=== PATIENT | female | born 1995 | race Caucasian/White ===

== ENCOUNTER 2016-12-11 01:43 | Emergency (ER) | payer SELFPAY ==
[~2016-12-11] VITALS: Ht 172.7 cm; Wt 57.6 kg
[~2016-12-11 01:43] MED LIST: BUPR100CR PO; GABA600T PO; LAMO100 PO; PRAZ1CAP PO; SERO300T PO
[2016-12-11 01:45] VITALS: BP 126/78; PULSE 54; RESP 16; TEMP 98.1; O2SAT 100
[2016-12-11] MEDS ORDERED: CEPHALEXIN MONOHYDRATE 500 MG CAP PO ONE (02:00)
[2016-12-11] MEDS ORDERED: CEPH500C PO (02:00)
[2016-12-11] MEDS ORDERED: PRED-503 PO (02:00)
--- NOTE | 2016-12-11 02:05 | PD ---
HPI Chief Complaint: Cold / Flu Symptoms Time Seen by Provider: 02:01 Travel History International Travel<30 days: No Contact w/Intl Traveler<30days: No Traveled to known affect area: No History of Present Illness HPI 21-year-old white female presents to emergency department with a 4-to five-day history of subjective fever and chills, earache, sore throat, congestion, cough and general malaise. She denies any nausea vomiting. No melena or diarrhea. No dysuria or frequency. No rashes or lesions. Tonsils are moderate. Worse with swallowing. PFSH Past Medical History Narrative Medical Kidney stones, Anxiety Anxiety: Yes Diabetes: No Diminished Hearing: No Kidney Stones: Yes (Hx per pt.) Respiratory: Yes (Hx bronchitis per pt.) Seizures: No (PT DENIES) Tetanus Vaccination: Unknown Influenza Vaccination: No ?: LMP: 11/18/16 : 1 Para: 0 Miscarriage: 1 : 0 Past Surgical History Surgical History: No Previous Surgery Social History Alcohol Use: Yes (very seldom) Tobacco Use: Yes (1/2 ppd) Substance Use: No (PT DENIES) Allergies-Medications (Allergen,Severity, Reaction): Coded Allergies: Clindamycin (Verified Allergy, Severe, Hives, 12/11/16) Per pt. Tramadol (Verified Allergy, Severe, Hives, 12/11/16) Per pt. Amoxicillin (Verified Allergy, Unknown, 12/11/16) Lactose (Verified Allergy, Unknown, 12/11/16) Penicillin (Verified Allergy, Unknown, 12/11/16) Reported Meds & Prescriptions Reported Meds & Active Scripts Active No Active Prescriptions or Reported Medications Review of Systems Except as stated in HPI: all other systems reviewed are Neg Physical Exam Narrative GENERAL: Well-developed, well-nourished in no acute distress. Nontoxic appearing. Positive laryngitis HEAD: Normocephalic, atraumatic. EYES: Pupils equal round and reactive. Extraocular motions intact. No scleral icterus. No injection or drainage. ENT: TMs clear without erythema. The external auditory canals clear. Nose: clear . Posterior pharynx is mildly erythematous and moist. No tonsillar edema or exudate. Uvula midline. Airway patent. NECK: Trachea midline.Supple, nontender, moves head freely. No central bony tenderness or spasm. CARDIOVASCULAR: Regular rate and rhythm without murmurs, gallops, or rubs. RESPIRATORY: Clear to auscultation. Breath sounds equal bilaterally. No wheezes , rales, or rhonchi. GASTROINTESTINAL: Abdomen soft, non-tender, nondistended. No hepato-splenomegaly , or palpable masses. No guarding. EXTREMITIES: No clubbing, cyanosis, or edema. No joint tenderness, effusion, or edema noted. BACK: Nontender without deformity or crepitance. No flank tenderness. Data Data Last Documented VS Vital Signs Date Time Temp Pulse Resp B/P Pulse Ox O2 Delivery O2 Flow Rate FiO2 12/11/16 01:45 98.1 54 16 126/78 100 Orders Cephalexin (Keflex) (12/11/16 02:00) [facility] Medical Decision Making Medical Screen Exam Complete: Yes Emergency Medical Condition: Yes Medical Record Reviewed: Yes Differential Diagnosis MDM: High Differential diagnoses: Strep throat, viral pharyngitis, mono, laryngitis Narrative Course Patient given Keflex 500 mg by mouth. This is acute laryngitis Diagnosis Primary Impression: Acute laryngitis Patient Instructions: General Instructions Additional Instructions: Rest. Force fluids. Saltwater gargles. Tylenol and Advil. Chloraseptic [place] Cepastat lozenge. Keflex and prednisone.. Follow-up with a primary care doctor in one week. Return to the ER if any problems. Med/Other Pt SpecificInfo: Prescription(s) given Scripts Prednisone (Deltasone)20 Mg Tab20 Mg PO BID #10 TAB Prov:Jessi Lim DO 12/11/16 Cephalexin 500 Mg Qgc016 Mg PO Q6H #28 CAP Prov:Jessi Lim DO 12/11/16 Disposition: 01 DISCHARGE HOME Condition: Stable Mak Tripathi Dec 11, 2016 02:05
== END 2016-12-11 02:43 | disposition home or self-care (01) ==
LOC: NEPD 01:43
DX: J04.0 Acute laryngitis (principal); F17.210 Nicotine dependence, cigarettes, uncomplicated
CPT/HCPCS: 99284

== ENCOUNTER 2017-04-12 16:33 | Emergency (ER) | payer SELFPAY ==
[~2017-04-12] VITALS: Ht 172.7 cm; Wt 50.0 kg
[~2017-04-12 16:33] MED LIST changes: -BUPR100CR PO; +CEPH500C PO; -GABA600T PO; -LAMO100 PO; -PRAZ1CAP PO; +PRED-503 PO; -SERO300T PO
[2017-04-12 16:36] VITALS: BP 124/75; PULSE 115; RESP 13; TEMP 98.1; O2SAT 97
--- NOTE | 2017-04-12 17:47 | PD ---
HPI Chief Complaint: Skin Problem Time Seen by Provider: 17:28 Travel History International Travel<30 days: No Contact w/Intl Traveler<30days: No Traveled to known affect area: No History of Present Illness HPI 21-year-old female presents to emergency department for evaluation of urticarial -like rash. Patient was seen and evaluated yesterday at [facility] with few lesions on her posterior trunk. She was given Benadryl and a steroid shot. This resolved her rash completely within one hour and she was discharged. Patient states by 9:00 last night the hives began to return and now she feels as though her entire body is covered with them. She states that the itch. She is concerned that she was allergic to one of the medications they gave her. Denies any chest pain or tightness. No difficulty breathing. No sensation oral swelling or difficulty swallowing. No other symptoms to report. PFSH Past Medical History Anxiety: Yes Diabetes: No Diminished Hearing: No Kidney Stones: Yes (Hx per pt.) Respiratory: Yes (Hx bronchitis per pt.) Seizures: No (PT DENIES) ?: Unknown LMP: 03/15/17 : 1 Para: 0 Miscarriage: 1 : 0 Social History Alcohol Use: Yes (very seldom) Tobacco Use: Yes (1/2 ppd) Substance Use: No (PT DENIES) Allergies-Medications (Allergen,Severity, Reaction): Coded Allergies: clindamycin (Unverified Allergy, Severe, Hives, 02/18/17) Per pt. tramadol (Unverified Allergy, Severe, Hives, 02/18/17) Per pt. amoxicillin (Unverified Allergy, Unknown, 02/18/17) lactose (Unverified Allergy, Unknown, 02/18/17) penicillin G (Unverified Allergy, Unknown, 02/18/17) Reported Meds & Prescriptions Reported Meds & Active Scripts Active Zantac (Ranitidine HCl) 150 Mg Tab 150 Mg PO BID 5 Days Deltasone (Prednisone) 20 Mg Tab 20 Mg PO BID 5 Days Deltasone (Prednisone) 20 Mg Tab 20 Mg PO BID Cephalexin 500 Mg Cap 500 Mg PO Q6H Review of Systems Except as stated in HPI: all other systems reviewed are Neg Physical Exam Narrative GENERAL: Well-nourished, well-developed female patient in no acute distress SKIN: Focused skin assessment warm/dry. General eyes: Confluent urticarial- like rash on the extremities. Patient does have mild excoriation on the left medial upper extremity from scratching. No pustular or vesicular formation. HEAD: Normocephalic. EYES: No scleral icterus. No injection or drainage. ENT: The lower lip does appear mildly edematous. Mucosa pink and moist. No erythema or exudates. No uvular edema. No uvular, palatal, or tonsillar deviation. Airway patent. Nasal turbinates appear normal without nasal blood, purulent drainage or septal hematoma. NECK: Supple, trachea midline. No JVD or lymphadenopathy. No stridor CARDIOVASCULAR: Regular rate and rhythm without murmurs, gallops, or rubs. RESPIRATORY: Breath sounds equal bilaterally. No accessory muscle use. GASTROINTESTINAL: Abdomen soft, non-tender, nondistended. MUSCULOSKELETAL: No cyanosis, or edema. BACK: Nontender without obvious deformity. No CVA tenderness. Data Data Last Documented VS Vital Signs Date Time Temp Pulse Resp B/P (MAP) Pulse Ox O2 Delivery O2 Flow Rate FiO2 04/12/17 18:44 04/12/17 16:36 98.1 115 13 97 Orders Orders Iv Access Insert/Monitor (04/12/17 17:46) Diphenhydramine Inj (Benadryl Inj) (04/12/17 18:00) Famotidine Inj (Pepcid Inj) (04/12/17 18:00) Methylprednisolone So Succ Inj (Solumedr (04/12/17 18:00) MDM Medical Decision Making Medical Screen Exam Complete: Yes Emergency Medical Condition: Yes Medical Record Reviewed: Yes Differential Diagnosis Urticaria versus allergic reaction versus viral exanthem versus contact dermatitis versus folliculitis versus stress-induced hives Narrative Course 21-year-old female presents as determined for evaluation of a pruritic urticarial-like rash. Patient appears without distress. She'll be given Benadryl Solu-Medrol and Pepcid here at emergency department. They said history of one-time dose resolving her symptoms lastly and recurrent exacerbation of symptoms, this is likely a rebound reaction. I do not feel she is allergic to any of the medication she was given last night. She was observed in symptoms began to resolve. She'll be started on a five-day course of it history, prednisone, and Zantac. She is encouraged to seek hotel attendant evaluation and return immediately with any acute worsening of symptoms. Diagnosis Primary Impression: Urticaria Referrals: Primary Care Physician Patient Instructions: General Instructions, Urticaria (ED) Additional Instructions: Avoid scratching rash Follow up with your primary care provider Continue antihistamine such as benadryl or cetirizine as directed on the package for the next 5 days Return to ED with acute worsening of symptoms Med/Other Pt SpecificInfo: Prescription(s) given Scripts Ranitidine (Zantac) 150 Mg Tab 150 MG PO BID for Reduce Stomach Acid for 5 Days, #10 TAB 0 Refills Prov: Rossana Paulino 04/12/17 Prednisone (Deltasone) 20 Mg Tab 20 MG PO BID for 5 Days, #10 TAB 0 Refills Prov: Rossana Paulino 04/12/17 Disposition: 01 DISCHARGE HOME Condition: Stable Rossana Paulino Apr 12, 2017 17:47
--- NOTE | 2017-04-12 17:54 | PD ---
Physical Exam Date Seen by Provider: Apr 12, 2017 Narrative This patient is being evaluated by Rossana Paulino NP for a diffuse skin rash. Data Data Last Documented VS Vital Signs Date Time Temp Pulse Resp B/P (MAP) Pulse Ox O2 Delivery O2 Flow Rate FiO2 04/12/17 16:36 98.1 115 13 124/75 (91) 97 Orders Orders Iv Access Insert/Monitor (04/12/17 17:46) Diphenhydramine Inj (Benadryl Inj) (04/12/17 18:00) Famotidine Inj (Pepcid Inj) (04/12/17 18:00) Methylprednisolone So Succ Inj (Solumedr (04/12/17 18:00) MDM Supervised Visit with GOPAL: Yes Narrative Course I, Dr. Wen, have reviewed the advance practice practitioner's documentation and am in agreement, met with the patient face to face, made the diagnosis, and the medical decision making was done by me. *My assessment and Findings: The patient has a diffuse urticarial rash. She is not having any respiratory distress. Please see Rossana Paulino NP's note for results of laboratory and radiographic evaluation, ED course, final diagnosis and disposition Jeannine Wen MD Apr 12, 2017 17:54
[2017-04-12] MEDS ORDERED: FAMOTIDINE 20 MG/2 ML VIAL IV PUSH SCH (18:00)
[2017-04-12] MEDS ORDERED: methylPREDNISolone SOD SUCC 125 MG/2 ML VIAL IV PUSH ONE (18:00)
[2017-04-12] MEDS ORDERED: diphenhydrAMINE HCL 50 MG/ML VIAL IV PUSH ONE (18:00)
[2017-04-12] MEDS ORDERED: PRED-503 PO (18:33)
[2017-04-12] MEDS ORDERED: ZANT150T2 PO (18:33)
== END 2017-04-12 18:53 | disposition home or self-care (01) ==
LOC: NEPD 16:33
DX: L50.9 Urticaria, unspecified (principal); F17.210 Nicotine dependence, cigarettes, uncomplicated
CPT/HCPCS: 96374; 96375; 99284; J1200; J2930

== ENCOUNTER 2017-04-13 20:20 | Emergency (ER) | payer SELFPAY ==
[~2017-04-13 20:20] MED LIST changes: +ZANT150T2 PO
[2017-04-13 20:21] VITALS: BP 120/60; PULSE 120; RESP 15; TEMP 98.6; O2SAT 100
== END 2017-04-13 21:20 | disposition left against medical advice (07) ==
LOC: NED 20:20
DX: Z53.21 Procedure and treatment not carried out due to patient leaving prior to being seen by health care provider (principal)
CPT/HCPCS: 99281